=== PATIENT | male | born 1960 | race Caucasian/White ===

== ENCOUNTER 2022-02-13 11:16 | Day surgery (SDC) | payer OTHER, SELFPAY ==
[2022-02-13] VITALS (7 sets, daily range): BP systolic 80–105; BP diastolic 38–72; PULSE 100–109; RESP 16–24; TEMP 35.9–36.9; O2SAT 95–96; BMI 34.6
[2022-02-13 11:58] LABS: Glucose, Whole Blood 144 mg/dL (60-115)
[2022-02-13] MEDS: Lactated Ringers 1,000 ML 50 ML IVCONT (12:01)
--- NOTE | 2022-02-13 12:16 | MHC.SHP ---
Pre-Procedural Eval Section A Date of Service: 02/13/22 The patient is an INPATIENT: No Section B Chief Complaint: nodule Allergies: Allergies Allergy/AdvReac Type Severity Reaction Status Date / Time No Known Allergies Allergy Verified 02/13/22 11:42 Plan I have reviewed the history and physical and performed a pertinent physical examination on my patient. No changes have occurred unless specified. Plan for bronch and EBUS
--- NOTE | 2022-02-13 12:25 | HO.ANESPROP2 ---
COUNTS INCLUDE 234 BEDS AT THE [facility] Past Medical History Medical History (Updated 02/13/22 @ 12:03 by Mandy Maloney) CHF (congestive heart failure) Diabetes Elevated cholesterol Former cigarette smoker HTN (hypertension) Liver lesion Lung mass Cognitive capacity: viewd all reports and notes from outside sources Surgical History Surgical History (Updated 02/13/22 @ 12:03 by Mandy Maloney) History of colonoscopy History of Problems with Anesthesia: No Social History Social History Patient Tobacco Use Status: Former Tobacco user Quit Date: 2021 Tobacco use type: Cigarette Cigarettes Per Day: 10 Years Smoked: 40 Smoked in Last 30 Days: Yes Use of substances other than those prescribed or required for medical reasons: No Are you DNR?: No Advance Directives: No Advance Directives Information Provided: No (pt has at home--hcp) Advance Directives on File: No Meds Allergies Allergy/AdvReac Type Severity Reaction Status Date / Time No Known Allergies Allergy Verified 02/13/22 11:42 Active Medications: Current Medications Lactated Ringer's (Lr) 1,000 mls @ 50 mls/hr IVCONT .Q20H SUSHILA Last Admin: 02/13/22 12:01 Dose: 50 mls/hr Documented by: Cefazolin Sodium/Dextrose (Ancef) 2 gm in 50 mls @ 100 mls/hr IV PREOP ONE Stop: 02/13/22 12:47 Home Medications Medication Instructions Recorded Confirmed Last Taken Type atorvastatin 80 mg tablet 1 tab PO DAILY 02/12/22 02/12/22 Unknown History carvedilol 25 mg tablet 2 tab PO DAILY 02/12/22 02/13/22 02/13/22 07:00 History furosemide 20 mg tablet 1 tab PO DAILY 02/12/22 02/12/22 Unknown History lisinopril 20 mg tablet 1 tab PO DAILY 02/12/22 02/12/22 Unknown History metformin 1,000 mg tablet 1 tab PO DAILY 02/12/22 02/12/22 Unknown History oxycodone 5 mg tablet tab PO 02/12/22 02/12/22 Unknown History potassium chloride 20 mEq 1 tab PO DAILY 02/12/22 02/12/22 Unknown History tablet,extended release(part/cryst) (Klor-Con M) Exam Exam Date and Time: February 13, 2022 1225 Height,Weight and Vital Signs: Height 5 ft 8.5 in Weight 104.78 kg Last Vital Signs Temp 96.7 F L 02/13/22 11:56 Pulse 106 H 02/13/22 11:56 Resp 16 02/13/22 11:56 BP 105/72 02/13/22 11:56 Pulse Ox 96 02/13/22 11:56 Pertinent Lab Results Pertinent Lab Results: Laboratory Tests 02/13/22 11:55 POC Glucose 144 H Airway Mallampati Class: III TM Dist: >3cm Neck ROM: Limited Partial: Upper and Lower Loose/Missing/Broken Teeth: No Heart: RRR Lungs: CTA Assessment and Plan Assessment Anesthesia Assessment: Anesthesia Plan Discussed and Chart Reviewed Final Anesthetic Review History of Problems with Anesthesia: No NPO: Yes ASA Class: III Final Preanesthetic Review: Meds/Allgs Chart Reviewed, Consent Obtained/Reviewed and Anes Risks/Benef Reviewed Patient Risk: Intermediate Procedure Risk: Intermediate Anesthetic Plan Anesthetic Plan: GA Disposition: Standard PACU
--- NOTE | 2022-02-13 13:46 | W.PM.OPN ---
Operative Note Operative Note Date of Service: 02/13/22 Narrative: Preoperative diagnosis: Mediastinal lymphadenopathy, right hilar lung mass, metastasis to the liver of unknown origin Postoperative diagnosis: Same Operation: Bronchoscopy with endobronchial biopsies and washings right upper lobe Endobronchial ultrasound with biopsy of multiple lymph node stations Surgeon: Keny Collins MD Anesthesia: General Specimens: endobronchial biopsies right upper lobe and washings right upper lobe, right paratracheal and subcarinal mediastinal lymph nodes left paratracheal lymph nodes could not be sampled EBL: Operation in detail: The patient was brought to the operating room, placed supine on the operative table, anesthesia monitor devices were placed, and the patient was intubated with an 8 and half endotracheal tube. A time-out was performed confirming the correct patient, site, and procedure. We started with the standard bronchoscope and visualized the airways down to the subsegmental level bilaterally there were no endobronchial lesions and no secretions with the exception of what looked like some abnormal mucosa at the orifice of the right upper lobe bronchus. I could just barely get the scope past this and nothing could be visualized though. Given this findings and his overall clinical picture decided to do some endobronchial biopsies of the abnormal mucosa and since we had pathology there we did a touch prep. This was done with a grasper forceps and touch prep was positive for non-small cell lung cancer. Further characterization is pending. Three additional forceps biopsies were taken from the same area and sent permanent in formalin. The scope was then wedged in the right upper lobe bronchus and 120 cc of saline washings were taken and collected for culture, fungus, AFB, and cytology. Hemostasis was excellent. At this point we switched scopes in order to get more tissue with the endobronchial ultrasound. The Olympus endobronchial ultrasound scope was then inserted through the endotracheal tube and the airways were visualized down to the subsegmental level bilaterally. Findings are Above. The ultrasound was then applied to all 3 stations visualizing the lymph nodes with the findings enlarged lymph nodes in the subcarinal and right paratracheal spaces with tiny scant lymph nodes in the left paratracheal space.. First, we visualized with ultrasound the subcarinal lymph nodes in using a 19 gauge Olympus biopsy needle 3 passes were taking and sent for on-site evaluation. This process was then repeated with right paratracheal and left paratracheal lymph nodes. Findings are Right paratracheal lymph node did not see adequate sampling so will have to wait for the final some in cell block. subcarinal was positive for malignancy and additional sent in cell block as well. Hemostasis was then assured in the bronchoscope was removed. The patient tolerated the procedure well, was extubated in the operating room, and brought to the PACU in stable condition.
== END 2022-02-13 15:01 | disposition home or self-care (01) ==
PROVIDERS: PCP Internal Medicine; Visit Provider Surgery
PROC: (CPT 31625; principal; 2022-02-13 13:00)
PROC: 0BJ08ZZ Inspection of Tracheobronchial Tree, Via Natural or Artificial Opening Endoscopic (ICD-10-PCS; CPT 31622; 2022-02-13 13:00)
DX: C34.11 Malignant neoplasm of upper lobe, right bronchus or lung (principal); C77.1 Secondary and unspecified malignant neoplasm of intrathoracic lymph nodes; C78.7 Secondary malignant neoplasm of liver and intrahepatic bile duct; C79.51 Secondary malignant neoplasm of bone; R63.0 Anorexia; F17.210 Nicotine dependence, cigarettes, uncomplicated; I50.9 Heart failure, unspecified; I11.0 Hypertensive heart disease with heart failure; E78.5 Hyperlipidemia, unspecified; E11.9 Type 2 diabetes mellitus without complications; F41.9 Anxiety disorder, unspecified; M54.9 Dorsalgia, unspecified; Z79.82 Long term (current) use of aspirin; Z79.84 Long term (current) use of oral hypoglycemic drugs; Z79.899 Other long term (current) drug therapy
CPT/HCPCS: 31625; 31623; 31652; 36415; 82947; 87071; 87102; 87107; 87116; 87205; 88112; 88172; 88173; 88305; 88333; 88341; 88342; 88360; J0171; J0690; J2250; J2370; J2405; J3010